=== PATIENT | female | born 1965 | race Hispanic/Latino ===

== ENCOUNTER 2024-11-20 08:44 | Emergency (ER) | payer BC, OTHER ==
[~2024-11-20] VITALS: Ht 165.1 cm; Wt 85.7 kg
[2024-11-20 08:44] VITALS: PULSE 102; RESP 16; TEMP 99.3
[~2024-11-20 08:44] MED LIST: RANITIDINE PO; TUMS PO
[2024-11-20] MEDS: KETOROLAC TROMETHAMINE 30 MG/ML VIAL IM STA (09:28)
[2024-11-20] MEDS: ACETAMINOPHEN 325 MG TAB PO ONE (09:28)
[2024-11-20 09:42] LABS: BILIRUBIN,URINE NEGATIVE (NEGATIVE); CLARITY,URINE CLEAR (CLEAR); COLOR,URINE YELLOW (YELLOW); GLUCOSE, URINE NEGATIVE (NEGATIVE); KETONES,URINE NEGATIVE (NEGATIVE); LEUKOCYTE ESTERASE ,URINE SMALL (NEGATIVE); NITRITE,URINE NEGATIVE (NEGATIVE); PH,URINE 7 (5 - 7); PROTEIN,URINE DIPSTICK NEGATIVE (NEGATIVE); URINE UROBILINOGEN 0.2 mg/dL (0.2 - 1)
[2024-11-20 09:45] LABS: CORONAVIRUS COVID-19 AG NEGATIVE (NEGATIVE); INFLUENZA A AG NEGATIVE (NEGATIVE); INFLUENZA B AG NEGATIVE (NEGATIVE)
[2024-11-20 09:51] LABS: WBC,URINE (MAN) 21-50 /HPF (0-5)
[2024-11-20 09:52] LABS: BACTERIA,URINE MANY /HPF; EPITHELIAL CELLS,URINE MODERATE /LPF
[2024-11-20] MEDS ORDERED: CEFDINIR300 MG PO (09:56)
[2024-11-20 10:13] VITALS: BP 124/82; PULSE 92; RESP 16; O2SAT 100
== END 2024-11-20 10:10 | disposition home or self-care (01) ==
LOC: ER 08:50
DX: R50.9 Fever, unspecified (principal); N39.0 Urinary tract infection, site not specified; R51.9 Headache, unspecified; R05.9 Cough, unspecified
CPT/HCPCS: 71046; 81001; 87086; 87186; 87428; 99283; J1885